=== PATIENT | male | born 1985 | race Caucasian/White ===

== ENCOUNTER 2016-05-08 17:31 | Emergency (ER) | payer SELFPAY ==
[~2016-05-08] VITALS: Ht 172.7 cm; Wt 89.0 kg
[2016-05-08 17:51] VITALS: BP 136/86; PULSE 92; RESP 16; TEMP 98.3; O2SAT 98
[2016-05-08] MEDS ORDERED: INDO50CA PO (18:06)
[2016-05-08] MEDS ORDERED: AMOX875T PO (18:08)
[2016-05-08] MEDS ORDERED: MAGICADU2 SWISH-SWAL (18:08)
[2016-05-08] MEDS ORDERED: HYDR-3533 PO (18:08)
[2016-05-08] MEDS ORDERED: ZOFR4TAB PO (18:08)
--- NOTE | 2016-05-08 18:13 | PD ---
HPI Chief Complaint: Oral / Dental Pain or Problem Time Seen by Provider: 18:08 Travel History International Travel<30 days: No Contact w/Intl Traveler<30days: No Traveled to known affect area: No History of Present Illness HPI 31-year-old male that presents to the ED for evaluation of facial pain. Patient has had pain on the left lower jaw. Per patient she's had this for the past couple of days. Per patient is not getting better. His been taking OTC meds with minimal relief. Per patient apparently this morning he felt that there was liquid in his mouth and he noticed that he had drainage from what appears to be an abscess. States that his pain is 7 out of 10. Per patient for the most current inflammatory symptoms BUT the pain continues to get worse. This is what made him come here. Per patient he is visiting. He denies any chest pain or shortness of breath. Per patient he feels like he has a fever. He has no allergies to medication. Denies any history of drug abuse. No Other medical problems. PFSH Past Medical History Gout: Yes Tetanus Vaccination: < 5 Years Influenza Vaccination: Yes Past Surgical History Surgical History: No Previous Surgery Social History Alcohol Use: No Tobacco Use: Yes (1/2 PPD AND CHEW) Substance Use: No Allergies-Medications (Allergen,Severity, Reaction): Coded Allergies: No Known Allergies (Unverified , 05/08/16) Reported Meds & Prescriptions Reported Meds & Active Scripts Active Zofran (Ondansetron HCl) 4 Mg Tab 4 Mg PO Q6HR PRN Magic Mouthwash Adult Liq (Multi-Ingredient Mouthwash/Gargle) 120 Ml Susp 5 Ml SWISH-SWAL ACHS Each 5 mL contains: Nystatin 200,000 units, Diphenhydramine 4.25 mg, Viscous Lidocaine 10 mg, Liu syrup 0.8 mL Lortab (Hydrocodone-Acetaminophen) 5-325 Mg Tab 1 Tab PO Q6H PRN Amoxicillin 875 Mg Tab 875 Mg PO BID 10 Days Reported Indomethacin 50 Mg Cap 50 Mg PO TID PRN Take with food, milk, or antacids to decrease stomach adverse effects. Review of Systems Except as stated in HPI: all other systems reviewed are Neg Physical Exam Narrative GENERAL: SKIN: Warm and dry. HEAD: Atraumatic. Normocephalic. EYES: Pupils equal and round. No scleral icterus. No injection or drainage. ENT: No nasal bleeding or discharge. Mucous membranes pink and moist. Tongue is midline. No uvula deviation. Oral: Patient has what appears to be a draining abscess on the left lower jaw around the third molar. Tenderness to palpation this area. No obvious purulence noted at this time. No other masses noted. NECK: Trachea midline. No JVD. CARDIOVASCULAR: Regular rate and rhythm. RESPIRATORY: No accessory muscle use. Clear to auscultation. Breath sounds equal bilaterally. GASTROINTESTINAL: Abdomen soft, non-tender, nondistended. Hepatic and splenic margins not palpable. MUSCULOSKELETAL: Extremities without clubbing, cyanosis, or edema. No obvious deformities. Full range of motion of the upper and lower extremities bilaterally. 2+ pulses bilaterally. NEUROLOGICAL: Awake and alert. No obvious cranial nerve deficits. Motor grossly within normal limits. Five out of 5 muscle strength in the arms and legs. Normal speech. PSYCHIATRIC: Appropriate mood and affect; insight and judgment normal. Data Data Last Documented VS Vital Signs Date Time Temp Pulse Resp B/P Pulse Ox O2 Delivery O2 Flow Rate FiO2 05/08/16 17:51 98.3 92 16 136/86 98 MDM Medical Decision Making Medical Screen Exam Complete: Yes Emergency Medical Condition: Yes Medical Record Reviewed: Yes Differential Diagnosis Dental abscess versus dental infection versus dentalgia Narrative Course 31-year-old male that presents to the ED for evaluation of dental infection. Patient was properly examined and was found to have signs and symptoms consistent with a draining abscess. At this time patient will be treated with Magic mouthwash, Lortab, amoxicillin and Zofran for his nausea. She was told to follow up with PCP. See ED worsening symptoms. I believe the nausea secondary to upset stomach secondary to the draining which he has been swallowing. Diagnosis Primary Impression: Dental abscess Patient Instructions: General Instructions Additional Instructions: Take medications as prescribed. Follow-up with PCP. See ED for any worsening symptoms. Do not drink or drive while taking pain medication. Apply ice or heat as needed for pain Med/Other Pt SpecificInfo: Prescription(s) given Scripts Ondansetron (Zofran)4 Mg Tab4 Mg PO Q6HR PRN (NAUSEA OR VOMITING) #20 TAB Prov:Juliana Alston MD 05/08/16 Yhixzcfl-Cpvrwtjacxcpxxd-Lfazagiee Liq (Magic Mouthwash Adult Liq)120 Ml Susp5 Ml SWISH-SWAL ACHS #120 ML Each 5 mL contains: Nystatin 200,000 units, Diphenhydramine 4.25 mg, Viscous Lidocaine 10 mg, Liu syrup 0.8 mL Prov:Juliana Alston MD 05/08/16 Hydrocodone-Acetaminophen (Lortab)5-325 Mg Tab1 Tab PO Q6H PRN (PAIN) #20 TAB Prov:Juliana Alston MD 05/08/16 Amoxicillin 875 Mg Whp688 Mg PO BID 10 Days Prov:Juliana Alston MD 05/08/16 Disposition: 01 DISCHARGE HOME Condition: Stable Mohinder Ruiz May 08, 2016 18:13
== END 2016-05-08 18:21 | disposition home or self-care (01) ==
LOC: EDBD → PHEFT 17:31
DX: K04.7 Periapical abscess without sinus (principal); F17.200 Nicotine dependence, unspecified, uncomplicated; Z87.39 Personal history of other diseases of the musculoskeletal system and connective tissue
CPT/HCPCS: 99282